=== PATIENT | female | born 1940 | race Caucasian/White ===

== ENCOUNTER 2020-11-27 10:57 | Inpatient (IN) ==
[2020-11-27] MEDS ORDERED: SODIUM CHLORIDE 0.9% 500 ML IV STA (11:14)
[2020-11-27 11:46] LABS: ABG HCO3 33.7 MMOL/L (20-26); ABG Oxygen Saturation 97.7 % (95-100); ABG PCO2 43.8 MM HG (35-48); ABG PH 7.503 (7.35-7.45); ABG PO2 87.8 MM HG (80-95); ABG TCO2 29.7 MMOL/L (23-27)
[2020-11-27 12:08] LABS: Basophils % 0.3 % (0.0-0.8); Eosinophils # 0.1 10*3/uL (0.0-0.87); Eosinophils % 1.3 % (0.00-10.9); Hematocrit 43.3 VOL% (35.7-47.0); Hemoglobin 13.3 GM/DL (12.0-16.0); Immature Granulocytes % 0.3 %; Immature Granulocytes Absolute 0.03 #; Lymphocytes # 2.9 10*3/uL (1.4-4.0); Lymphocytes % 28.5 % (21.3-54.2); Mean Corpuscular HGB Conc 30.7 GM/DL (32-36); Mean Corpuscular Volume 91.2 FL (87-102); Mean Platelet Volume 11.4 FL (9.6-12.0); Monocytes % 7.5 % (1.7-12.7); Neutrophils % 62.1 % (38.7-73.9); Platelet Count 188 T/CUMM (130-400); Red Blood Count 4.75 MC/CUMM (3.8-5.5); Red Cell Distribution Width 15.3 % (9.3-17.3); White Blood Count 10.3 T/CUMM (4-12)
[2020-11-27 12:27] LABS: INR 1.1; PT Patient Result 11.7 SECS (9.8-11.9)
[2020-11-27 12:32] LABS: Alanine Aminotransferase 20 U/L (13-56); Albumin 3.7 G/DL (3.4-5.0); Alkaline Phosphatase 107 U/L (45-117); Aspartate Amino Transferase 47 U/L (0-37); Blood Urea Nitrogen 27 MG/DL (7-18); Calcium 11.6 MG/DL (8.5-10.1); Carbon Dioxide 35 MMOL/L (21-32); Estimated Glom Filtration Rate 50 ML/MIN; Glucose 202 MG/DL (74-106); Osmolality,Calculated 280.1 MOS/KG (273-304); Potassium 4.1 MMOL/L (3.5-5.1); Sodium 135 MMOL/L (136-145); Total Protein 8.6 G/DL (6.4-8.3); Troponin I < 0.015 NG/ML (0.00-0.045)
[2020-11-27 13:10] LABS: Glucose,Urine (UA) Negative (Negative); Ketones,Urine Negative (Negative); Nitrite,Urine Negative (Negative); Protein,Urine Negative; Urine Appearance Clear (Clear); Urine Color Yellow (Yellow); Urine Specific Gravity 1.005 (1.001-1.035)
[2020-11-27 13:11] LABS: Bilirubin,Urine Negative (Negative); Blood, Urine Negative (Negative); Urine Urobilinogen 0.2 EU/DL (0.2-1.0)
[2020-11-27] MEDS ORDERED: AZITHROMYCIN INJ 500 MG in SODIUM CHLORIDE 0.9% 250 ML IV STA (13:14)
[2020-11-27] MEDS ORDERED: cefTRIAXone 1,000 MG in SODIUM CHLORIDE 0.9% 100 ML IV STA (13:14)
[2020-11-27] MEDS ORDERED: DEXTROSE 50% 25 GM/50 ML VIAL IV PRN (14:29)
[2020-11-27] MEDS ORDERED: hydrALAZINE 20 MG/1 ML VIAL IV PRN (14:29)
[2020-11-27] MEDS ORDERED: GLUCAGON 1 MG VIAL IM PRN (14:29)
[2020-11-27] MEDS ORDERED: ONDANSETRON 4 MG/2 ML VIAL IV PRN (14:29)
[2020-11-27] MEDS ORDERED: SODIUM CHLORIDE 0.9% 250 ML IV STA (14:43)
[2020-11-27 15:11] LABS: Risk Ratio 3.28; Thyroid Stimulating Hormone 2.49 uIU/ml (0.358-3.74); VLDL CHOLESTEROL 44.8 MG/DL
[2020-11-27] MEDS: SODIUM CHLORIDE 0.9% 1,000 ML IV SCH (15:45)
[2020-11-27] MEDS: ENOXAPARIN 40 MG/0.4 ML SYRINGE SUBCUT SCH (15:46)
[2020-11-27 16:05] LABS: Parathyroid Hormone Intact 20.2 PG/ML (18.4-80.1)
[2020-11-27] MEDS: INSULIN LISPRO 100 UNIT/ML SUBCUT SCH ×2 (16:35→21:32)
[2020-11-27] MEDS: FUROSEMIDE 20 MG/2 ML VIAL IV SCH (21:30)
[2020-11-27] MEDS: DOCUSATE SODIUM 100 MG CAPSULE PO SCH (21:33)
[2020-11-27] MEDS: SIMVASTATIN 80 MG TABLET PO SCH (21:33)
[2020-11-27] MEDS: DONEPEZIL 10 MG TABLET PO SCH (21:34)
[2020-11-27] MEDS: MEMANTINE 10 MG TABLET PO SCH (21:34)
[2020-11-27] MEDS: rOPINIRole 1 MG TABLET PO SCH (21:36)
[2020-11-27] MEDS: METOPROLOL SUCCINATE XL 50 MG TABLET PO SCH (21:36)
[2020-11-28] MEDS: SODIUM CHLORIDE 0.9% 1,000 ML IV SCH ×2 (03:01→16:01)
[2020-11-28] MEDS: ACETAMINOPHEN 325 MG TABLET PO PRN ×2 (05:44→16:01)
[2020-11-28] MEDS: LEVOTHYROXINE 88 MCG TABLET PO SCH (05:46)
[2020-11-28 06:08] LABS: Basophils % 0.3 % (0.0-0.8); Eosinophils # 0.2 10*3/uL (0.0-0.87); Eosinophils % 2.4 % (0.00-10.9); Hemoglobin 11.5 GM/DL (12.0-16.0); Immature Granulocytes % 0.1 %; Immature Granulocytes Absolute 0.01 #; Lymphocytes # 2.4 10*3/uL (1.4-4.0); Mean Corpuscular HGB Conc 30.3 GM/DL (32-36); Mean Corpuscular Volume 94.5 FL (87-102); Mean Platelet Volume 11.5 FL (9.6-12.0); Neutrophils % 58.2 % (38.7-73.9); Platelet Count 163 T/CUMM (130-400); Red Blood Count 4.02 MC/CUMM (3.8-5.5); Red Cell Distribution Width 15.3 % (9.3-17.3); White Blood Count 7.6 T/CUMM (4-12)
[2020-11-28 06:41] LABS: Albumin 3.1 G/DL (3.4-5.0); Bilirubin,Total 1.7 MG/DL (0.2-1.0); Calcium 9.7 MG/DL (8.5-10.1); Osmolality,Calculated 287.3 MOS/KG (273-304); Potassium 3.3 MMOL/L (3.5-5.1); Total Protein 7.5 G/DL (6.4-8.3)
[2020-11-28] MEDS ORDERED: MAGNESIUM SULF RIDER 2 GM in PREMIX 1 EACH IV PRN (08:41)
[2020-11-28] MEDS ORDERED: MAGNESIUM SULF RIDER 4 GM in PREMIX 1 EACH IV PRN (08:41)
[2020-11-28] MEDS: INSULIN LISPRO 100 UNIT/ML SUBCUT SCH ×4 (09:35→21:14)
[2020-11-28] MEDS: FUROSEMIDE 20 MG/2 ML VIAL IV SCH ×2 (09:35→17:16)
[2020-11-28] MEDS: METOPROLOL SUCCINATE XL 50 MG TABLET PO SCH ×2 (09:36→21:03)
[2020-11-28] MEDS: DOCUSATE SODIUM 100 MG CAPSULE PO SCH ×2 (09:36→21:02)
[2020-11-28] MEDS: MEMANTINE 10 MG TABLET PO SCH ×2 (09:36→21:03)
[2020-11-28] MEDS: VENLAFAXINE XR 75 MG CAPSULE PO SCH (09:36)
[2020-11-28] MEDS: POTASSIUM CHLORIDE 20 MEQ TABLET PO PRN ×3 (10:16→15:01)
[2020-11-28] MEDS: cefTRIAXone 1,000 MG in SYRINGE 1 EACH IV SCH (12:41)
[2020-11-28] MEDS ORDERED: TUBERCULIN SKIN TEST 0.1 ML SYRINGE INTRADERM ONE (15:00)
[2020-11-28] MEDS: SIMVASTATIN 80 MG TABLET PO SCH (21:02)
[2020-11-28] MEDS: ENOXAPARIN 40 MG/0.4 ML SYRINGE SUBCUT SCH (21:02)
[2020-11-28] MEDS: DONEPEZIL 10 MG TABLET PO SCH (21:03)
[2020-11-28] MEDS: rOPINIRole 1 MG TABLET PO SCH (21:03)
[2020-11-29] MEDS: SODIUM CHLORIDE 0.9% 1,000 ML IV SCH ×2 (02:33→13:37)
[2020-11-29 05:22] LABS: Basophils % 0.3 % (0.0-0.8); Eosinophils # 0.2 10*3/uL (0.0-0.87); Eosinophils % 2.8 % (0.00-10.9); Hematocrit 35.1 VOL% (35.7-47.0); Hemoglobin 10.8 GM/DL (12.0-16.0); Immature Granulocytes % 0.3 %; Immature Granulocytes Absolute 0.02 #; Lymphocytes # 1.8 10*3/uL (1.4-4.0); Lymphocytes % 29.8 % (21.3-54.2); Mean Corpuscular HGB Conc 30.8 GM/DL (32-36); Mean Corpuscular Volume 92.6 FL (87-102); Mean Platelet Volume 11.6 FL (9.6-12.0); Monocytes % 8.8 % (1.7-12.7); Platelet Count 141 T/CUMM (130-400); Red Blood Count 3.79 MC/CUMM (3.8-5.5); Red Cell Distribution Width 15.2 % (9.3-17.3)
[2020-11-29 05:50] LABS: Calcium 8.6 MG/DL (8.5-10.1); Osmolality,Calculated 288.1 MOS/KG (273-304); Potassium 3.4 MMOL/L (3.5-5.1)
[2020-11-29] MEDS: LEVOTHYROXINE 88 MCG TABLET PO SCH (06:10)
[2020-11-29 07:38] LABS: Total Protein (Chem) 7.6 G/DL (6.4-8.3)
[2020-11-29 08:43] LABS: Albumin (SPE) 4.2 G/DL (3.2-5.3); Albumin (SPE) Rel % 55.8 %; Alpha 1 (SPE) 0.2 G/DL (0.1-0.4); Alpha 1 (SPE) Rel % 2.1 %; Alpha 2 (SPE) 1.1 G/DL (0.4-1.0); Alpha 2 (SPE) Rel % 14.3 %; Beta (SPE) 1.1 G/DL (0.5-1.1); Beta (SPE) Rel % 14.5 %; Gamma (SPE) Rel % 13.3 %
[2020-11-29] MEDS ORDERED: sitaGLIPtin 25 MG TABLET PO SCH (09:00)
[2020-11-29] MEDS: VENLAFAXINE XR 75 MG CAPSULE PO SCH (09:36)
[2020-11-29] MEDS: DOCUSATE SODIUM 100 MG CAPSULE PO SCH (09:37)
[2020-11-29] MEDS: MEMANTINE 10 MG TABLET PO SCH (09:37)
[2020-11-29] MEDS: POTASSIUM CHLORIDE 20 MEQ TABLET PO PRN (09:37)
[2020-11-29] MEDS: METOPROLOL SUCCINATE XL 50 MG TABLET PO SCH (09:37)
[2020-11-29] MEDS: INSULIN LISPRO 100 UNIT/ML SUBCUT SCH ×2 (09:38→13:09)
[2020-11-29] MEDS: cefTRIAXone 1,000 MG in SYRINGE 1 EACH IV SCH (09:43)
[2020-11-29] MEDS: FUROSEMIDE 20 MG/2 ML VIAL IV SCH (09:43)
[2020-11-29 11:53] VITALS: BP 127/60
[2020-11-30] MEDS ORDERED: LEVOFLOXACIN 500 MG TABLET PO SCH (09:00)
== END 2020-11-29 13:36 | disposition swing bed (61) | DRG 57 ==
LOC: N.EDINP 10:57 → N.ED 10:57 → N.5E 14:21
PROVIDERS: ADMIT Internal Medicine; ATTEND Internal Medicine

== ENCOUNTER 2021-08-09 21:26 | Inpatient (IN) ==
[2021-08-09] MEDS ORDERED: MORPHINE 2 MG/1 ML SYRINGE ONE (22:47)
[2021-08-09] MEDS ORDERED: ONDANSETRON 4 MG/2 ML VIAL ONE (22:47)
[2021-08-09] MEDS ORDERED: GLUCAGON 1 MG VIAL IM PRN (23:03)
[2021-08-09] MEDS ORDERED: ONDANSETRON 4 MG/2 ML VIAL IV PRN (23:03)
[2021-08-09] MEDS ORDERED: DEXTROSE 50% 25 GM/50 ML VIAL IV PRN (23:03)
[2021-08-09] MEDS ORDERED: ZALEPLON 5 MG CAPSULE PO PRN (23:03)
[2021-08-09] MEDS ORDERED: MORPHINE 2 MG/1 ML SYRINGE IV STA (23:10)
[2021-08-09 23:14] LABS: Basophils % 0.2 % (0.0-0.8); Eosinophils # 0.5 10*3/uL (0.0-0.87); Eosinophils % 5.7 % (0.00-10.9); Hematocrit 37.4 VOL% (35.7-47.0); Immature Granulocytes % 0.6 %; Immature Granulocytes Absolute 0.05 #; Lymphocytes # 1.6 10*3/uL (1.4-4.0); Lymphocytes % 19.2 % (21.3-54.2); Mean Corpuscular HGB Conc 29.4 GM/DL (32-36); Mean Corpuscular Volume 98.7 FL (87-102); Mean Platelet Volume 10.7 FL (9.6-12.0); Monocytes % 7.2 % (1.7-12.7); Neutrophils % 67.1 % (38.7-73.9); Platelet Count 196 T/CUMM (130-400); Red Blood Count 3.79 MC/CUMM (3.8-5.5); White Blood Count 8.1 T/CUMM (4-12)
[2021-08-09] MEDS ORDERED: ONDANSETRON 4 MG/2 ML VIAL IV STA (23:15)
[2021-08-09 23:29] LABS: PT Patient Result 10.9 SECS (10.5-12.0); Partial Thromboplastin Time 25.8 SECS (23.8-32.1)
[2021-08-09 23:31] LABS: Calcium 10.2 MG/DL (8.5-10.1); Osmolality,Calculated 288.5 MOS/KG (273-304); Potassium 3.4 MMOL/L (3.5-5.1)
[2021-08-09] MEDS ORDERED: POTASSIUM CHLORIDE 20 MEQ TABLET PO PRN (23:45)
[2021-08-09] MEDS ORDERED: POTASSIUM CHLORIDE 20 MEQ TABLET PO STA (23:45)
[2021-08-10 00:27] LABS: Bacteria,Urine Few /HPF (Few); Bilirubin,Urine Negative (Negative); Blood, Urine Negative (Negative); Glucose,Urine (UA) Negative (Negative); Hyaline Casts,Urine 1 /LPF (0-3); Ketones,Urine Negative (Negative); Nitrite,Urine Negative (Negative); Protein,Urine Negative; RBC,Urine 2 /HPF (0-4); Squamous Epithelial Cell,Urine Occasional /HPF (0-10); Urine Appearance CLEAR (Clear); Urine Color Straw (Yellow); Urine Specific Gravity 1.011 (1.001-1.035); Urine Urobilinogen < 2.0 EU/DL (0.2-1.0)
[2021-08-10] MEDS ORDERED: SODIUM CHLORIDE 0.9% 1,000 ML IV SCH (00:30)
[2021-08-10] MEDS: MORPHINE 2 MG/1 ML SYRINGE IV PRN ×3 (01:07→16:43)
[2021-08-10 07:17] LABS: Basophils % 0.3 % (0.0-0.8); Eosinophils # 0.4 10*3/uL (0.0-0.87); Eosinophils % 4.8 % (0.00-10.9); Hematocrit 33.8 VOL% (35.7-47.0); Hemoglobin 10.5 GM/DL (12.0-16.0); Immature Granulocytes % 0.4 %; Immature Granulocytes Absolute 0.03 #; Lymphocytes # 1.5 10*3/uL (1.4-4.0); Mean Corpuscular HGB Conc 31.1 GM/DL (32-36); Mean Corpuscular Volume 94.9 FL (87-102); Mean Platelet Volume 10.7 FL (9.6-12.0); Monocytes % 9.2 % (1.7-12.7); Neutrophils % 66.3 % (38.7-73.9); Platelet Count 167 T/CUMM (130-400); Red Blood Count 3.56 MC/CUMM (3.8-5.5); Red Cell Distribution Width 15.8 % (9.3-17.3); White Blood Count 7.7 T/CUMM (4-12)
[2021-08-10] MEDS: INSULIN REGULAR 100 UNIT/ML SUBCUT SCH ×4 (07:18→22:05)
[2021-08-10] MEDS: LEVOTHYROXINE 88 MCG TABLET PO SCH (07:19)
[2021-08-10 07:36] LABS: Bilirubin,Total 0.8 MG/DL (0.20-1.00); Calcium 9.6 MG/DL (8.5-10.1); Osmolality,Calculated 284.4 MOS/KG (273-304); Potassium 3.2 MMOL/L (3.5-5.1); Total Protein 7.4 G/DL (6.4-8.2)
[2021-08-10] MEDS ORDERED: CLINDAMYCIN INJ 900 MG/50 ML PREMIX IV ONE (09:00)
[2021-08-10] MEDS ORDERED: TUBERCULIN SKIN TEST 0.1 ML SYRINGE INTRADERM ONE (09:30)
[2021-08-10] MEDS ORDERED: LIDOCAINE 2% 5 ML VIAL ONE (09:33)
[2021-08-10] MEDS ORDERED: SUCCINYLCHOLINE 200 MG/10 ML VIAL ONE (09:33)
[2021-08-10] MEDS ORDERED: propofoL 200 MG/20 ML VIAL IV ONE (09:33)
[2021-08-10] MEDS ORDERED: ROCURONIUM 50 MG/5 ML VIAL IV ONE (09:33)
[2021-08-10] MEDS ORDERED: fentaNYL 100 MCG/2 ML VIAL ONE (09:33)
[2021-08-10] MEDS: FUROSEMIDE 20 MG TABLET PO SCH (09:45)
[2021-08-10] MEDS: VENLAFAXINE XR 75 MG CAPSULE PO SCH (09:45)
[2021-08-10] MEDS: METOPROLOL SUCCINATE XL 50 MG TABLET PO SCH ×2 (09:46→22:05)
[2021-08-10] MEDS: TRIAMTERENE/HCTZ 37.5-25 MG TABLET PO SCH (09:46)
[2021-08-10] MEDS: allopurinoL 300 MG TABLET PO SCH (09:46)
[2021-08-10] MEDS: MEMANTINE 10 MG TABLET PO SCH ×2 (09:46→22:04)
[2021-08-10] MEDS: SOLIFENACIN 5 MG TABLET PO SCH (09:46)
[2021-08-10] MEDS: PANTOPRAZOLE 40 MG TABLET PO SCH (09:46)
[2021-08-10] MEDS ORDERED: DEXAMETHASONE 4 MG/1 ML VIAL ONE (09:49)
[2021-08-10] MEDS ORDERED: LIDOCAINE 1% 5 ML VIAL ONE (09:49)
[2021-08-10] MEDS ORDERED: BUPIVACAINE MPF 0.25% 30 ML VIAL ONE (09:49)
[2021-08-10] MEDS ORDERED: BUPIVACAINE SPINAL 0.75% 2 ML AMP SPINAL ONE (10:05)
[2021-08-10] MEDS ORDERED: KETAMINE 500 MG/10 ML VIAL ONE (10:14)
[2021-08-10] MEDS ORDERED: LACTULOSE 20 GM/30 ML UDCUP PO PRN (10:31)
[2021-08-10] MEDS ORDERED: MAGNESIUM HYDROXIDE SUSP 30 ML UDCUP PO PRN (10:31)
[2021-08-10] MEDS ORDERED: BISACODYL 10 MG SUPP RECTAL PRN (10:31)
[2021-08-10] MEDS ORDERED: diphenhydrAMINE CAP 25 MG CAPSULE PO PRN (10:31)
[2021-08-10] MEDS ORDERED: MORPHINE 2 MG/1 ML SYRINGE IV PRN (10:39)
[2021-08-10] MEDS ORDERED: SEVOFLURANE 1 UNIT/15 MINUTE INH ONE ×5 (11:02→12:06)
[2021-08-10] MEDS ORDERED: PHENYLEPHRINE 1 MG/10 ML SYRINGE IV ONE (11:02)
[2021-08-10] MEDS ORDERED: NEOSTIGMINE 10 MG/10 ML VIAL ONE (11:39)
[2021-08-10] MEDS ORDERED: ONDANSETRON 4 MG/2 ML VIAL ONE (11:40)
[2021-08-10] MEDS ORDERED: GLYCOPYRROLATE 0.4 MG/2 ML VIAL ONE (11:40)
[2021-08-10] MEDS: CLINDAMYCIN INJ 900 MG/50 ML PREMIX IV SCH (18:56)
[2021-08-10] MEDS: DONEPEZIL 10 MG TABLET PO SCH (22:04)
[2021-08-10] MEDS: SIMVASTATIN 40 MG TABLET PO SCH (22:05)
[2021-08-10] MEDS: DOCUSATE SODIUM 100 MG CAPSULE PO SCH (22:05)
[2021-08-10] MEDS: rOPINIRole 1 MG TABLET PO SCH (22:05)
[2021-08-11] MEDS: CLINDAMYCIN INJ 900 MG/50 ML PREMIX IV SCH (02:23)
[2021-08-11] MEDS: MORPHINE 2 MG/1 ML SYRINGE IV PRN (02:24)
[2021-08-11] MEDS: FONDAPARINUX 2.5 MG/0.5 ML SYRINGE SUBCUT SCH (05:32)
[2021-08-11] MEDS: LEVOTHYROXINE 88 MCG TABLET PO SCH (05:32)
[2021-08-11 05:53] LABS: Basophils % 0.2 % (0.0-0.8); Eosinophils # 0.1 10*3/uL (0.0-0.87); Eosinophils % 0.7 % (0.00-10.9); Hematocrit 29.6 VOL% (35.7-47.0); Immature Granulocytes % 0.5 %; Immature Granulocytes Absolute 0.05 #; Lymphocytes # 1.5 10*3/uL (1.4-4.0); Lymphocytes % 15.7 % (21.3-54.2); Mean Corpuscular HGB Conc 30.4 GM/DL (32-36); Mean Corpuscular Volume 94.3 FL (87-102); Mean Platelet Volume 10.4 FL (9.6-12.0); Neutrophils % 72.9 % (38.7-73.9); Platelet Count 153 T/CUMM (130-400); Red Blood Count 3.14 MC/CUMM (3.8-5.5); Red Cell Distribution Width 16.1 % (9.3-17.3); White Blood Count 9.4 T/CUMM (4-12)
[2021-08-11 06:13] LABS: Albumin 2.6 G/DL (3.4-5.0); Bilirubin,Total 0.8 MG/DL (0.20-1.00); Osmolality,Calculated 285.3 MOS/KG (273-304); Potassium 3.1 MMOL/L (3.5-5.1)
[2021-08-11] MEDS ORDERED: POTASSIUM CHLORIDE 20 MEQ TABLET PO PRN (06:21)
[2021-08-11] MEDS: INSULIN REGULAR 100 UNIT/ML SUBCUT SCH ×4 (08:06→21:41)
[2021-08-11] MEDS: MEMANTINE 10 MG TABLET PO SCH ×2 (09:11→21:40)
[2021-08-11] MEDS: PANTOPRAZOLE 40 MG TABLET PO SCH (09:12)
[2021-08-11] MEDS: DOCUSATE SODIUM 100 MG CAPSULE PO SCH ×2 (09:12→21:40)
[2021-08-11] MEDS: FUROSEMIDE 20 MG TABLET PO SCH (09:12)
[2021-08-11] MEDS: sitaGLIPtin 25 MG TABLET PO SCH (09:12)
[2021-08-11] MEDS: allopurinoL 300 MG TABLET PO SCH (09:12)
[2021-08-11] MEDS: SOLIFENACIN 5 MG TABLET PO SCH (09:13)
[2021-08-11] MEDS: TRIAMTERENE/HCTZ 37.5-25 MG TABLET PO SCH (09:13)
[2021-08-11] MEDS: VENLAFAXINE XR 75 MG CAPSULE PO SCH (09:13)
[2021-08-11] MEDS: METOPROLOL SUCCINATE XL 50 MG TABLET PO SCH (09:13)
[2021-08-11] MEDS ORDERED: POTASSIUM CHLORIDE 20 MEQ PACK PO ONE ×2 (09:30→10:23)
[2021-08-11] MEDS ORDERED: MAGNESIUM SULF RIDER 2 GM/50 ML PREMIX IV ONE (09:30)
[2021-08-11] MEDS: DONEPEZIL 10 MG TABLET PO SCH (21:40)
[2021-08-11] MEDS: rOPINIRole 1 MG TABLET PO SCH (21:40)
[2021-08-11] MEDS: SIMVASTATIN 40 MG TABLET PO SCH (21:40)
[2021-08-12 05:12] LABS: Basophils % 0.2 % (0.0-0.8); Eosinophils # 0.1 10*3/uL (0.0-0.87); Eosinophils % 0.9 % (0.00-10.9); Hematocrit 29.6 VOL% (35.7-47.0); Immature Granulocytes % 0.7 %; Immature Granulocytes Absolute 0.08 #; Lymphocytes # 1.6 10*3/uL (1.4-4.0); Lymphocytes % 13.9 % (21.3-54.2); Mean Corpuscular HGB Conc 30.4 GM/DL (32-36); Mean Corpuscular Volume 94.9 FL (87-102); Mean Platelet Volume 11.3 FL (9.6-12.0); Monocytes % 10.2 % (1.7-12.7); Neutrophils % 74.1 % (38.7-73.9); Platelet Count 145 T/CUMM (130-400); Red Blood Count 3.12 MC/CUMM (3.8-5.5); Red Cell Distribution Width 16.2 % (9.3-17.3); White Blood Count 11.2 T/CUMM (4-12)
[2021-08-12 05:30] LABS: Albumin 2.6 G/DL (3.4-5.0); Bilirubin,Total 1.1 MG/DL (0.20-1.00); Calcium 9.2 MG/DL (8.5-10.1); Osmolality,Calculated 271.2 MOS/KG (273-304); Total Protein 7.4 G/DL (6.4-8.2)
[2021-08-12] MEDS: FONDAPARINUX 2.5 MG/0.5 ML SYRINGE SUBCUT SCH (05:59)
[2021-08-12] MEDS: LEVOTHYROXINE 88 MCG TABLET PO SCH (05:59)
[2021-08-12] MEDS ORDERED: MAGNESIUM SULF RIDER 4 GM/100 ML PREMIX IV PRN (08:11)
[2021-08-12] MEDS ORDERED: MAGNESIUM SULF RIDER 2 GM/50 ML PREMIX IV PRN (08:11)
[2021-08-12] MEDS: INSULIN REGULAR 100 UNIT/ML SUBCUT SCH ×4 (09:27→23:36)
[2021-08-12] MEDS: METOPROLOL SUCCINATE XL 100 MG TABLET PO SCH (09:28)
[2021-08-12] MEDS: allopurinoL 300 MG TABLET PO SCH (09:28)
[2021-08-12] MEDS: MEMANTINE 10 MG TABLET PO SCH ×2 (09:28→20:30)
[2021-08-12] MEDS: sitaGLIPtin 25 MG TABLET PO SCH (09:28)
[2021-08-12] MEDS: TRIAMTERENE/HCTZ 37.5-25 MG TABLET PO SCH (09:28)
[2021-08-12] MEDS: PANTOPRAZOLE 40 MG TABLET PO SCH (09:28)
[2021-08-12] MEDS: VENLAFAXINE XR 75 MG CAPSULE PO SCH (09:28)
[2021-08-12] MEDS: SOLIFENACIN 5 MG TABLET PO SCH (09:29)
[2021-08-12] MEDS: DOCUSATE SODIUM 100 MG CAPSULE PO SCH ×2 (09:29→20:28)
[2021-08-12] MEDS: POTASSIUM CHLORIDE RIDER 10 MEQ/100 ML PREMIX IV PRN ×2 (12:16→13:57)
[2021-08-12] MEDS: SIMVASTATIN 40 MG TABLET PO SCH (20:29)
[2021-08-12] MEDS: rOPINIRole 1 MG TABLET PO SCH (20:30)
[2021-08-12] MEDS: DONEPEZIL 10 MG TABLET PO SCH (20:30)
[2021-08-13 06:13] LABS: Albumin 2.2 G/DL (3.4-5.0); Bilirubin,Total 0.9 MG/DL (0.20-1.00); Calcium 9.2 MG/DL (8.5-10.1); Osmolality,Calculated 264.7 MOS/KG (273-304); Potassium 3.6 MMOL/L (3.5-5.1)
[2021-08-13] MEDS: FONDAPARINUX 2.5 MG/0.5 ML SYRINGE SUBCUT SCH (06:42)
[2021-08-13] MEDS: LEVOTHYROXINE 88 MCG TABLET PO SCH (06:42)
[2021-08-13] MEDS: DOCUSATE SODIUM 100 MG CAPSULE PO SCH ×2 (08:47→21:59)
[2021-08-13] MEDS: SOLIFENACIN 5 MG TABLET PO SCH (08:48)
[2021-08-13] MEDS: VENLAFAXINE XR 75 MG CAPSULE PO SCH (08:48)
[2021-08-13] MEDS: allopurinoL 300 MG TABLET PO SCH (08:48)
[2021-08-13] MEDS: sitaGLIPtin 25 MG TABLET PO SCH (08:48)
[2021-08-13] MEDS: METOPROLOL SUCCINATE XL 100 MG TABLET PO SCH (08:48)
[2021-08-13] MEDS: MEMANTINE 10 MG TABLET PO SCH ×2 (08:48→21:59)
[2021-08-13] MEDS: TRIAMTERENE/HCTZ 37.5-25 MG TABLET PO SCH (08:48)
[2021-08-13] MEDS: PANTOPRAZOLE 40 MG TABLET PO SCH (08:48)
[2021-08-13] MEDS: INSULIN REGULAR 100 UNIT/ML SUBCUT SCH ×4 (08:49→21:59)
[2021-08-13] MEDS: SIMVASTATIN 40 MG TABLET PO SCH (21:58)
[2021-08-13] MEDS: rOPINIRole 1 MG TABLET PO SCH (21:58)
[2021-08-13] MEDS: DONEPEZIL 10 MG TABLET PO SCH (21:59)
[2021-08-14 05:58] LABS: Basophils % 0.2 % (0.0-0.8); Eosinophils # 0.3 10*3/uL (0.0-0.87); Hematocrit 27.7 VOL% (35.7-47.0); Hemoglobin 8.4 GM/DL (12.0-16.0); Immature Granulocytes % 0.8 %; Immature Granulocytes Absolute 0.07 #; Lymphocytes # 1.8 10*3/uL (1.4-4.0); Lymphocytes % 20.6 % (21.3-54.2); Mean Corpuscular HGB Conc 30.3 GM/DL (32-36); Mean Corpuscular Volume 95.2 FL (87-102); Mean Platelet Volume 11.9 FL (9.6-12.0); Monocytes % 12.4 % (1.7-12.7); Platelet Count 116 T/CUMM (130-400); Red Blood Count 2.91 MC/CUMM (3.8-5.5); Red Cell Distribution Width 15.9 % (9.3-17.3); White Blood Count 8.6 T/CUMM (4-12)
[2021-08-14] MEDS: FONDAPARINUX 2.5 MG/0.5 ML SYRINGE SUBCUT SCH (06:00)
[2021-08-14] MEDS: LEVOTHYROXINE 88 MCG TABLET PO SCH (06:05)
[2021-08-14 06:37] LABS: Albumin 2.3 G/DL (3.4-5.0); Bilirubin,Total 0.6 MG/DL (0.20-1.00); Calcium 9.6 MG/DL (8.5-10.1); Osmolality,Calculated 270.4 MOS/KG (273-304); Potassium 3.7 MMOL/L (3.5-5.1); Total Protein 7.2 G/DL (6.4-8.2)
[2021-08-14 06:40] LABS: Platelet Estimate Adequate
[2021-08-14 06:41] LABS: Anisocytosis 1+; Hypochromasia 1+
[2021-08-14 06:42] LABS: Macrocytosis Slight
[2021-08-14] MEDS: INSULIN REGULAR 100 UNIT/ML SUBCUT SCH (07:21)
[2021-08-14 07:52] VITALS: BP 125/72
[2021-08-14] MEDS: DOCUSATE SODIUM 100 MG CAPSULE PO SCH (08:13)
[2021-08-14] MEDS: VENLAFAXINE XR 75 MG CAPSULE PO SCH (08:13)
[2021-08-14] MEDS: METOPROLOL SUCCINATE XL 100 MG TABLET PO SCH (08:13)
[2021-08-14] MEDS: SOLIFENACIN 5 MG TABLET PO SCH (08:13)
[2021-08-14] MEDS: PANTOPRAZOLE 40 MG TABLET PO SCH (08:14)
[2021-08-14] MEDS: MEMANTINE 10 MG TABLET PO SCH (08:14)
[2021-08-14] MEDS: TRIAMTERENE/HCTZ 37.5-25 MG TABLET PO SCH (08:14)
[2021-08-14] MEDS: sitaGLIPtin 25 MG TABLET PO SCH (08:14)
[2021-08-14] MEDS: allopurinoL 300 MG TABLET PO SCH (08:14)
== END 2021-08-14 10:38 | disposition swing bed (61) | DRG 522 ==
LOC: EDUNIT# → EDBD → N.ED 21:26 → SUATTDRO 23:03 → N.EDINP 23:03 → N.3E 08-10 00:13
PROVIDERS: ADMIT Family Medicine; ATTEND Internal Medicine